=== PATIENT | female | born 1990 | race Caucasian/White ===

== ENCOUNTER 2017-03-08 06:05 | Emergency (ER) | END 2017-03-08 10:38 | disposition home or self-care (01) | DX: O20.0 Threatened abortion (principal); Z3A.08 8 weeks gestation of pregnancy | CPT/HCPCS: 36415; 76801; 81001; 84702; 85025; 86900; 86901; 93970; J2790; Z7502 ==

== ENCOUNTER 2017-06-25 21:28 | Outpatient (CLI) | payer MEDICAID ==
[~2017-06-25] VITALS: Ht 162.6 cm; Wt 101.3 kg
[~2017-06-25 21:28] MED LIST: CEPH-443 PO
[2017-06-25 22:02] VITALS: BP 133/72; PULSE 106; RESP 18; Ht 162.6 cm; Wt 101.3 kg
[2017-06-25] MEDS ORDERED: PREN1TAB79 PO (22:04)
[2017-06-25 22:51] LABS: ADD UMIC YES; UR ASCORBIC ACID NEGATIVE (NEGATIVE); UR BACTERIA FEW /HPF (NONE SEEN); UR BILIRUBIN (Dip) NEGATIVE (NEGATIVE); UR BLOOD (Dip) 2+ mg/dL (NEGATIVE); UR CLARITY CLEAR (CLEAR); UR COLOR COLORLESS (YELLOW); UR GLUCOSE (Dip) NEGATIVE (NEGATIVE); UR KETONES (Dip) NEGATIVE (NEGATIVE); UR LEUKOCYTE ESTERASE (Dip) NEGATIVE Leu/ul (NEGATIVE); UR NITRITE (Dip) NEGATIVE (NEGATIVE); UR RBC 0 /HPF (0-5); UR SPECIFIC GRAVITY (Dip) 1.004 (1.003-1.030); UR TOTAL PROTEIN (Dip) NEGATIVE (NEGATIVE); UR UROBILINOGEN (Dip) NEGATIVE (NEGATIVE)
--- NOTE | 2017-06-25 23:25 | RADRPT ---
PROCEDURE: LIMITED OBSTETRICAL ULTRASOUND CLINICAL INDICATION: 27 years of age, female. Vaginal spotting. Evaluate amniotic fluid. TECHNIQUE: Sonographic evaluation to assess the amniotic fluid index was performed. Transabdomina l imaging of the gravid uterus was performed. COMPARISON: First trimester ultrasound March 08, 2017 FINDINGS: Estimated due date October 16, 2017 Gestational age by CINDA 23 weeks 5 days A single live intrauterine in breech presentation is identified. The heart rate pankaj ures 159 bpm. The amniotic -fluid index equals 11.5 cm. Anterior placenta, grade 1. Negative for evidence of retroplacental hemorrhage. There are small plac ental lakes in the superior placenta. Cervix is long and closed and measures 5 cm. Negative for internal following. IMPRESSION: 1. Single living fetus in breech presentation. 2. Amniotic fluid is low normal. Amniotic fluid index measures 11.5 cm. 3. Anterior placenta grade 1. Negative for evidence of retroplacental hemorrhage. Please note that p lacental abruption is a clinical diagnosis and may not be detected with ultrasound. RPTAT: HCTS Physician Josias Date Time Electronically viewed and signed by Physician Josias on 06/25/2017 23:24 CS/
--- NOTE | 2017-06-26 00:03 | PN ---
Triage Information Date/Time Reason for visit: Vag spotting / bleeding Weeks of Gestation 24+ /Para 1/0 Diabetes: none Hypertention: none Objective Vital Signs Date Time Temp Pulse Resp B/P Pulse Ox O2 Delivery O2 Flow Rate FiO2 06/25/17 22:02 99.1 106 18 133/72 Room Air Heart Rate: 140's Contractions: None Results/Medications Results 24 hrs Laboratory Tests Test 06/25/17 20:30 06/25/17 22:30 Urine Color COLORLESS Urine Clarity CLEAR Urine pH 7.0 Urine Specific [place] 1.004 Urine Ketones NEGATIVE Urine Nitrite NEGATIVE Urine Bilirubin NEGATIVE Urine Urobilinogen NEGATIVE Urine Leukocyte Esterase NEGATIVE Urine Microscopic RBC 0 Urine Microscopic WBC 1 Urine Bacteria FEW A Urine Hemoglobin 2+ H Urine Glucose NEGATIVE Urine Total Protein NEGATIVE Fibronectin NEGATIVE Disposition: Discharge Assessment/Plan FFN negative No blood in vagina CXL WNL Ultrasound report reviewed --->Discharged with precautions --->patient's questions answered YANY ROTHMAN M.D. Jun 26, 2017 00:03
--- NOTE | 2017-06-26 00:22 | TRIAGE ---
OB Triage Datetime Report Generated by CPN: 06/26/2017 00:21 Datetime: 06/25/2017 23:59 Stage of : OB Triage Contraction Comments: MONITORS OFF. PT UP TO BED FOR DRESS UP. Datetime: 06/25/2017 23:56 Stage of : OB Triage Datetime: 06/25/2017 23:53 Stage of : OB Triage Datetime: 06/25/2017 23:30 Stage of : OB Triage Labor Evaluation Frequency: NONE Monitor Mode: External Heart Rate FHR Baseline Rate: 165 Monitor Mode: External US Pain Assessment Pain Presence: None/Denies Datetime: 06/25/2017 23:00 Stage of : OB Triage Labor Evaluation Frequency: NONE Monitor Mode: External Heart Rate FHR Baseline Rate: 160 Monitor Mode: External US Pain Assessment Pain Presence: None/Denies Datetime: 06/25/2017 22:45 Stage of : OB Triage Datetime: 06/25/2017 22:31 Stage of : OB Triage Contraction Comments: US TECH AT BEDSIDE FOR US. Datetime: 06/25/2017 22:30 Stage of : OB Triage Datetime: 06/25/2017 22:10 Stage of : OB Triage Datetime: 06/25/2017 22:03 Time of Arrival: 06/25/2017 21:26 EGA: 24.1 Arrived By: Wheelchair Arrived From: Home Chief Complaint: PT C/O SPOTTING Movement: Present Contractions: Denies/Absent Rupture of Membranes: Denies Vaginal Discharge: Denies Patient Complaints: Other Time Provider Notified: 06/25/2017 22:10 Provider Notified: DR ROTHMAN Initial Plan: EFM AND TOCO APPLIED. INITIAL ASSESSMENT. MONITFY MD Datetime: 06/25/2017 22:00 Stage of : OB Triage Maternal Assessment Level of Consciousness: Fully Conscious DTR's/Clonus: DTRs 2+; No Clonus Headache: Denies Blurred Vision: No Respiratory Effort: Unlabored; Regular Rhythm; Equal Expansion Breath Sounds, Left: Clear and Equal Breath Sounds, Right: Clear and Equal Nausea/Vomiting: Denies RUQ Epigastric Pain: Denies Lower Extremities Edema: None Upper Extremities Edema: None Facial Edema: None Temperature Route: Oral Fall Risk Assessment History of Falling: (0) No Secondary Diagnosis: (0) No Ambulatory Aid: (0) Bedrest/Nurse Assist IV Therapy: (0) No Gait: (0) Normal/Bedrest/Immobile Mental Status: (0) Oriented to Own Ability Fall Score: 0 Fall Risk Score Definition: No Risk: No action required Labor Evaluation Frequency: NONE Monitor Mode: External Heart Rate FHR Baseline Rate: 160 Monitor Mode: External US Variability: Moderate 6-25 bpm Datetime: 06/25/2017 21:45 Stage of : OB Triage
== END 2017-06-26 00:11 | disposition home or self-care (01) ==
LOC: OBT 21:28 → L-D 21:28 → OBT 06-26 00:11
PROVIDERS: ATTEND Obstetrics & Gynecology
DX: O46.8X2 Other antepartum hemorrhage, second trimester (principal); Z3A.24 24 weeks gestation of pregnancy
CPT/HCPCS: 76815; 76817; 81001; 82731; Z7500; G0463

== ENCOUNTER 2017-10-18 05:15 | Inpatient (IN) | END 2017-10-20 18:55 | disposition home or self-care (01) | DRG 775 ==